=== PATIENT | female | born 1985 | race Caucasian/White ===

== ENCOUNTER 2017-07-01 16:45 | Observation (INO) | payer BC ==
[~2017-07-01] VITALS: Ht 162.6 cm; Wt 90.0 kg
[~2017-07-01 16:45] MED LIST: PRENATAL TABLE1 EAC2 PO
== END 2017-07-02 12:50 | disposition home or self-care (01) ==
LOC: FBCO 16:45 → FBC 19:10 → FBCO 07-10 09:31
PROVIDERS: ADMIT Obstetrics & Gynecology
DX: O40.3XX0 Polyhydramnios, third trimester, not applicable or unspecified (principal); O32.2XX0 Maternal care for transverse and oblique lie, not applicable or unspecified; O99.89 Other specified diseases and conditions complicating pregnancy, childbirth and the puerperium; R50.9 Fever, unspecified; Z3A.38 38 weeks gestation of pregnancy
CPT/HCPCS: 36415; 59025; 76819; 81001; 85025; 87502; 96360; 96361; 99214; G0378; J7120

== ENCOUNTER 2017-07-04 18:10 | Inpatient (IN) | payer BC ==
[~2017-07-04] VITALS: Ht 162.6 cm; Wt 90.0 kg
--- NOTE | 2017-07-04 20:09 | NUR ---
07/04/172008 Rena Stephens 2006: PT ARRIVES TO PACU FROM [facility] OR. SHE IS AWAKE AND RESPONSIVE.
--- NOTE | 2017-07-04 20:19 | NUR ---
WAS IN HOUSE FOR ANOTHER PT WHEN CODE 4 CALL CAME IN. WENT AND CHECKED IN WITH PT'S SO/ WHO WAS WONDERING IF HE WOULD GET TO BE IN THE ROOM WITH THE PT WHEN SHE HAD SURGERY. RELAYED INFO TO SO/ THAT HE WOULD NOT BE ABLE TO BE IN THE ROOM. NURSING STAFF SAID THEY WOULD GIVE REGULAR UPDATES ON THE CONDITION OF PT. CHECKED IN AGAIN ON SO/ WHEN BABY WAS BROUGHT INTO ROOM.
[2017-07-05] MEDS ORDERED: TYLENOL325 MG PO (01:29)
[2017-07-08] MEDS ORDERED: NORCO 5-325 TA1 EACH PO (05:56)
[2017-07-08] MEDS ORDERED: IBUPROFEN800 MG PO (05:57)
--- NOTE | 2017-07-17 08:35 | OR ---
[facility] [address], [place] [address] Signed DATE OF PROCEDURE: 07/04/17 SURGEON: Guido Frye DO. PLATFORM SUPERVISOR: Miguelito Restrepo. PROCEDURE: Primary low transverse section. PREOPERATIVE DIAGNOSES Intrauterine at 39 and 1 week gestation. Suspected placental abruption with heavy vaginal bleeding. Unstable lie. Polyhydramnios. History of shoulder dystocia. POSTOPERATIVE DIAGNOSES Intrauterine at 39 and 1 week gestation. Suspected placental abruption with heavy vaginal bleeding. Unstable lie. Polyhydramnios. History of shoulder dystocia. ANESTHESIA: General. ESTIMATED BLOOD LOSS: 800 mL. COMPLICATIONS: None. FINDINGS Viable female , 6 pounds 12 ounces with Apgars of 9 and 10 at one and five minutes respectively. Estimated blood loss 800. Moderate abruption noted at time of hysterotomy. Nuchal cord x1 that was loose. Normal tubes and ovaries bilaterally. Normal uterus. INDICATION Ms. Guerra is a pleasant 31-year-old, G3, P2, with IUP at 39 and 1-week's gestation, presented to the Emergency Department complaining of acute onset of heavy vaginal bleeding just after intercourse. The is complicated by unstable lie, polyhydramnios, history of shoulder dystocia, and history of smoking. The patient reported occasional contractions and positive movement. Category 1 tracing was noted on the monitor and a bedside ultrasound was performed that demonstrated an oblique lie. Cervical exam was performed, which showed the patient was dilated 3 cm, Electronically Signed By: GUIDO FRYE DO 07/17/17 0835 PATIENT NAME: KATERINA GUERRA OPERATIVE REPORT DATE OF : 81 PHYSICIAN: GUIDO FRYE DO REPORT #: [id number] REPORT IS CONFIDENTIAL AND NOT TO BE RELEASED WITHOUT AUTHORIZATION [facility] [address], [place] [address] Signed thick, posterior, and unfavorable. Uterine bleeding consistent with abruption was noted. Decision was made to proceed with urgent primary . Risks, benefits, and alternatives were discussed in detail with the patient. The patient and understand and wished to proceed with the procedure. TECHNIQUE The patient was taken to the operating room. A time-out was performed including correct patient and correct procedure. General anesthesia was adequately established. Davis catheter was inserted and after the patient was prepped and draped, ICPs were applied and Ancef 2 g were given preoperatively per skip protocol. Once general anesthesia was adequately established, a Pfannenstiel skin incision was made with surgical scalpel, carried down to and through the fascia in the midline. The fascial incision was extended bilaterally using blunt curved Kerr scissors. The fascia was elevated with Cash's and the underlying rectus muscles dissected sharply. The rectus was divided in the midline and the peritoneum was entered bluntly. Peritoneal incision was then extended bilaterally using blunt dissection. A low uterine segment was identified and hysterotomy was made using a surgical scalpel. A moderate-sized blood clot was noted at the time of hysterotomy. The bag of water was then ruptured and the surgeon's hand was placed into the uterus. Oblique lie was noted and the vertex was brought to the lower uterine segment without difficulty. It was then elevated into the abdomen and delivered with assistance of fundal pressure. Nuchal cord x1 loose was noted and not reduced. The remainder of the delivered spontaneously. The was vigorous, cried upon delivery and the oral nasopharynx were bulb suctioned. Cord doubly clamped and cut and the handed to the waiting rebar fabricator. Cord blood was obtained and cord gases were also obtained. The placenta was then manually extracted and sent to pathology for further evaluation. The uterus was exteriorized and cleared with lap sponges of any remaining products of conception and clot. The uterine incision was then closed with 0 Vicryl in a running locked stitch. A second vertical imbricating suture of 0 Vicryl was then applied with good reapproximation. Some oozing was noted along the hysterotomy and this was made hemostatic with several [id number] sutures. The pelvis was irrigated several times to ensure hemostasis. Once hemostasis was ensured, an ACell sheet was applied to the lower uterine segment and peritoneum was closed using 2-0 Vicryl in a running nonlocked stitch. The rectus muscles were reapproximated in the midline using 0 Vicryl in interrupted simple sutures. The rectus muscle was examined and made hemostatic with Bovie electrocautery and with Evicel. ACell powder was applied to the rectus sheath and the fascia was then reapproximated using 0 Vicryl in a running nonlocked suture. Subcutaneous layer was reapproximated with 3-0 Vicryl in a running suture and skin was reapproximated using surgical dolly. The uterus was Crede'd for a small amount of blood. The patient was then taken the PACU in good and stable condition. Sponge, needle, and instrument count was correct x2 at the end of the procedure. Dr. Restrepo was present and participated in all portions of the procedure. Electronically Signed By: GUIDO FRYE DO 07/17/17 0835 PATIENT NAME: KATERINA GUERRA OPERATIVE REPORT DATE OF : 81 PHYSICIAN: GUIDO FRYE DO REPORT #: [id number] REPORT IS CONFIDENTIAL AND NOT TO BE RELEASED WITHOUT AUTHORIZATION [facility] [address] [place] [address] [place] [address] Signed Guido Frye DO JElanW/Anali /[id number] Electronically Signed By: GUIDO FRYE DO 07/17/17 0835 PATIENT NAME: KATERINA GUERRA OPERATIVE REPORT DATE OF : 81 PHYSICIAN: GUIDO FRYE DO REPORT #: [id number] REPORT IS CONFIDENTIAL AND NOT TO BE RELEASED WITHOUT AUTHORIZATION
== END 2017-07-07 11:45 | disposition home or self-care (01) | DRG 765 ==
LOC: FBCO 18:10 → FBC 18:30
PROVIDERS: ADMIT Obstetrics & Gynecology
PROC: 10D00Z1 Extraction of Products of Conception, Low, Open Approach (ICD-10-PCS; principal; 2017-07-04 18:46)
DX: O34.211 Maternal care for low transverse scar from previous cesarean delivery (principal); O45.93 Premature separation of placenta, unspecified, third trimester; Z3A.39 39 weeks gestation of pregnancy; Z37.0 Single live birth; O64.8XX0 Obstructed labor due to other malposition and malpresentation, not applicable or unspecified; O69.81X0 Labor and delivery complicated by cord around neck, without compression, not applicable or unspecified
CPT/HCPCS: 01961; 36415; 82803; 85025; 85027; 86850; 86900; 86901; C1763; J0330; J0690; J1170; J1644; J1885; J2250; J2405; J2590; J2704; J3010; J7120

== ENCOUNTER 2017-07-08 05:43 | Emergency (ER) | payer BC ==
[~2017-07-08] VITALS: Ht 162.6 cm; Wt 86.2 kg
[~2017-07-08 05:43] MED LIST changes: +TYLENOL325 MG PO
[2017-07-08] MEDS ORDERED: NORCO 5-325 TA1 EACH PO (05:56)
[2017-07-08] MEDS ORDERED: IBUPROFEN800 MG PO (05:57)
== END 2017-07-08 07:10 | disposition home or self-care (01) ==
LOC: ED 05:43
DX: L76.22 Postprocedural hemorrhage of skin and subcutaneous tissue following other procedure (principal); Z87.891 Personal history of nicotine dependence
CPT/HCPCS: 81001; 99283